=== PATIENT | female | born 1960 | race Caucasian/White ===

== ENCOUNTER → 2023-10-13 15:33 | Outpatient (REF) | payer BC, SELFPAY ==
[2023-10-13 16:44] LABS: Blood Urea Nitrogen 16 mg/dl (7-17); Calcium 9.3 mg/dl (8.4-10.2); Carbon Dioxide 26 mmol/L (22-30); Chloride 105 mmol/L (98-107); Glucose 92 mg/dl (70-99); Sodium 140 mmol/L (135-145); eGFR > 60.00
== END ==
LOC: REG 15:33
PROVIDERS: ATTENDING PHYSICIAN Surgery; FAMILY PHYSICIAN Family Medicine
DX: Z01.812 Encounter for preprocedural laboratory examination (principal)
CPT/HCPCS: 36415; 80048

== ENCOUNTER → 2023-10-17 07:22 | Outpatient (REF) | payer BC, SELFPAY | LOC: RAD 07:22 | PROVIDERS: ATTENDING PHYSICIAN Surgery; FAMILY PHYSICIAN Family Medicine | DX: Q74.0 Other congenital malformations of upper limb(s), including shoulder girdle (principal) | CPT/HCPCS: 71260; Q9967 ==

== ENCOUNTER → 2023-10-19 15:32 | Outpatient (REF) | payer BC, SELFPAY | LOC: DHCBS MAIN 15:32 | PROVIDERS: ATTENDING PHYSICIAN Internal Medicine Cardiovascular Disease; FAMILY PHYSICIAN Family Medicine | DX: I77.819 Aortic ectasia, unspecified site (principal); H34.9 Unspecified retinal vascular occlusion; I35.0 Nonrheumatic aortic (valve) stenosis | CPT/HCPCS: 93306 ==

== ENCOUNTER → 2024-02-08 06:23 | Outpatient (REF) | payer BC, SELFPAY ==
[2024-02-08 07:04] LABS: D-Dimer 0.37 ug/mlFEU (0.00-0.50)
== END ==
LOC: REG 06:23
PROVIDERS: ATTENDING PHYSICIAN Nurse Practitioner Family; FAMILY PHYSICIAN Family Medicine
DX: R06.09 Other forms of dyspnea (principal)
CPT/HCPCS: 36415; 85379

== ENCOUNTER → 2024-03-20 06:27 | Outpatient (REF) | payer BC, SELFPAY ==
[2024-03-20 08:20] LABS: D-Dimer < 0.27 ug/mlFEU (0.00-0.50)
== END ==
LOC: REG 06:27
PROVIDERS: ATTENDING PHYSICIAN Nurse Practitioner Family; FAMILY PHYSICIAN Family Medicine; REFERRING PHYSICIAN Internal Medicine Critical Care Medicine
DX: R06.09 Other forms of dyspnea (principal)
CPT/HCPCS: 36415; 85379

== ENCOUNTER → 2024-04-11 06:33 | Outpatient (REF) | payer BC, SELFPAY ==
[2024-04-11] MEDS: FLUSH (NSS) 1 FLUSH IV (08:38)
[2024-04-11] MEDS: LEXISCAN 0.4 MG IV (08:38)
[2024-04-11] MEDS: AMINOPHYLLINE 75 MG IV (08:38)
== END ==
LOC: RCS 06:33
PROVIDERS: ATTENDING PHYSICIAN Physician Assistant; FAMILY PHYSICIAN Family Medicine
DX: E78.2 Mixed hyperlipidemia (principal); E78.5 Hyperlipidemia, unspecified; I25.10 Atherosclerotic heart disease of native coronary artery without angina pectoris; Z82.49 Family history of ischemic heart disease and other diseases of the circulatory system; I44.7 Left bundle-branch block, unspecified
CPT/HCPCS: 78452; 93017; A9500; J2785

== ENCOUNTER → 2024-07-20 14:57 | Outpatient (REF) | payer BC, SELFPAY | LOC: WDC 14:57 | PROVIDERS: ATTENDING PHYSICIAN Family Medicine | DX: Z12.31 Encounter for screening mammogram for malignant neoplasm of breast (principal) | CPT/HCPCS: 77063; 77067 ==

== ENCOUNTER → 2024-08-03 16:20 | Outpatient (REF) | payer BC, SELFPAY | LOC: UCDH 16:20 | PROVIDERS: ATTENDING PHYSICIAN Physician Assistant Medical; FAMILY PHYSICIAN Family Medicine | DX: J06.9 Acute upper respiratory infection, unspecified (principal) | CPT/HCPCS: 71046 ==

== ENCOUNTER → 2024-09-08 07:01 | Outpatient (REF) | payer BC, SELFPAY ==
[2024-09-08 08:37] LABS: ALT (SGPT) 36 U/L (0-35); AST (SGOT) 29 U/L (14-36); Albumin 4.5 g/dl (3.5-5.0); Alkaline Phosphatase 90 U/L (38-126); Blood Urea Nitrogen 12 mg/dl (7-17); Calcium 9.2 mg/dl (8.4-10.2); Carbon Dioxide 26 mmol/L (22-30); Chloride 103 mmol/L (98-107); Glucose 90 mg/dl (70-99); Potassium 4.3 mmol/L (3.5-5.1); Sodium 138 mmol/L (135-145); Total Bilirubin 0.9 mg/dl (0.2-1.3); Total Protein 7.1 g/dl (6.3-8.2); eGFR > 60.00
[2024-09-08 08:45] LABS: Urine Albumin Negative (Neg - Trace); Urine Bilirubin Negative (Negative); Urine Character Clear (Clear); Urine Color Yellow; Urine Glucose Negative (Negative); Urine Ketone Negative (Negative); Urine Leukocyte Negative (Negative); Urine Nitrite Negative (Negative); Urine Occult Blood 2+ (Negative); Urine Urobilinogen Negative (Neg - 1+)
[2024-09-08 08:57] LABS: Hematocrit 44.7 % (37.0-47.0); Mean Corp Hgb Conc. 33.6 g/dL (33.0-37.0); Mean Corpuscular Hgb 29.2 pg (27.0-31.0); Mean Corpuscular Volume 87.1 fL (81.0-99.0); Red Blood Cell Count 5.13 10^6/uL (4.20-5.40); Red Cell Dist. Width 13.8 % (11.5-14.5); White Blood Cell Count 5.4 10^3/uL (4.8-10.8)
[2024-09-08 08:58] LABS: % Basophils 0.4 % (0-2); % Eosinophils 1.9 % (0-6); % Immature Granulocytes 0.4 % (0-0.5); % Lymphocytes 33.3 % (20.5-51.1); % Monocytes 6.2 % (1.7-9.3); % Neutrophils 57.8 % (42.2-75.2); Absolute Eosinophils 0.1 10^3/uL (0-0.7); Absolute Lymphocytes 1.8 10^3/uL (1.2-3.4); Absolute Monocytes 0.3 10^3/uL (0.1-0.6); Absolute Neutrophils 3.1 10^3/uL (1.4-6.5); Nucleated Red Blood Cells % 0 %
[2024-09-08 08:59] LABS: Urine Bacteria Few (Negative); Urine White Cell None Seen /HPF (0-5)
[2024-09-08 09:01] LABS: TSH Reflex To Free T4 2.11 uIU/ml (0.47-4.68)
[2024-09-08 13:22] LABS: Glycohemoglobin (HgbA1c) 5.6 % (4.0-5.6)
== END ==
LOC: REG 07:01
PROVIDERS: ATTENDING PHYSICIAN Internal Medicine Cardiovascular Disease; FAMILY PHYSICIAN Family Medicine
DX: E78.2 Mixed hyperlipidemia (principal); I25.10 Atherosclerotic heart disease of native coronary artery without angina pectoris; E88.810 Metabolic syndrome; R73.02 Impaired glucose tolerance (oral)
CPT/HCPCS: 36415; 80053; 81003; 81015; 83036; 84443; 85025

== ENCOUNTER → 2024-10-24 07:14 | Outpatient (REF) | payer BC, SELFPAY ==
[2024-10-24] MEDS: LEXISCAN 0.4 MG IV (09:27)
[2024-10-24] MEDS: FLUSH (NSS) 1 FLUSH IV (09:27)
[2024-10-24] MEDS: AMINOPHYLLINE 75 MG IV (09:45)
== END ==
LOC: RCS 07:14
PROVIDERS: ATTENDING PHYSICIAN Internal Medicine Cardiovascular Disease; FAMILY PHYSICIAN Family Medicine
DX: R07.9 Chest pain, unspecified (principal)
CPT/HCPCS: 78452; 93017; A9500; J2785

== ENCOUNTER 2024-11-05 05:56 | Day surgery (SDC) | payer BC, SELFPAY ==
[2024-11-05] VITALS (16 sets, daily range): BP systolic 110–164; BP diastolic 64–103; BMI 36.6
[2024-11-05] MEDS: LOW STRENGTH ASPIRIN 81 MG PO (07:05)
[2024-11-05 07:11] LABS: Hematocrit 44.7 % (37.0-47.0); Hemoglobin 15.2 g/dL (12.0-16.0); Mean Corpuscular Hgb 29.4 pg (27.0-31.0); Mean Corpuscular Volume 86.5 fL (81.0-99.0); Mean Platelet Volume 9.5 fL (7.4-10.4); Platelet Count 193 10^3/uL (130-400); Red Blood Cell Count 5.17 10^6/uL (4.20-5.40); Red Cell Dist. Width 13.6 % (11.5-14.5); White Blood Cell Count 5.7 10^3/uL (4.8-10.8)
[2024-11-05 07:35] LABS: ALT (SGPT) 26 U/L (0-35); AST (SGOT) 23 U/L (14-36); Albumin 4.3 g/dl (3.5-5.0); Alkaline Phosphatase 95 U/L (38-126); Blood Urea Nitrogen 9 mg/dl (7-17); Calcium 9.5 mg/dl (8.4-10.2); Carbon Dioxide 25 mmol/L (22-30); Chloride 108 mmol/L (98-107); Estimated Creatinine Clearance 98 ml/min; Glucose 103 mg/dl (70-99); Potassium 3.9 mmol/L (3.5-5.1); Sodium 141 mmol/L (135-145); eGFR > 60.00
[2024-11-05 10:50] LABS: Magnesium 2.1 mg/dl (1.6-2.3)
[2024-11-05] MEDS: TYLENOL 650 MG PO (10:59)
--- NOTE | 2024-11-05 12:19 | ITS.CL.CATH ---
Addendum entered and electronically signed by Jeovany Stark MD 11/06/24 10:41:
Attending addendum: I inadvertently described LAD as RCA stenosis. Corrected anatomy as below
CORONARY FINDINGS
DOMINANCE: Right
LEFT MAIN: Normal
LEFT ANTERIOR DESCENDING: The LAD arises normally from the left main and runs in the anterior interventricular groove. The first diagonal branch arises very proximally from the LAD and has luminal irregularities. The mid LAD beyond the diagonal
branch has a focal calcified 50 to 60% stenosis with the remainder of the LAD having only minor irregularities
CIRCUMFLEX: The circumflex is a medium caliber nondominant vessel. OM1 is small. OM 2 is a small to medium caliber vessel that bifurcates distally and the circumflex terminates in a moderate to large caliber OM 3 that has a 40% stenosis in its
midportion.
RIGHT CORONARY ARTERY: The right coronary artery is a dominant vessel with a proximal palacios's crook. The right coronary artery has only minor irregularities throughout its course with no focal obstructive stenosis.
Original Note:
Housekeeping Room Inspector - Catheterization
Cardiac Catheterization
Procedure Report:
LEFT HEART CATHETERIZATION
Date of Procedure: November 05, 2024
Referring: Dr. Le Jackson
PROCEDURES:
1. Coronary angiography. A pigtail catheter did enter the left ventricle with onset of sustained ventricular tachycardia requiring 200 J biphasic shock x 2. LVEDP was not measured after this event
INDICATION: This is a 64-year-old female with a past medical history notable for asthma and prior history of retinal artery occlusion. She reports frequent palpitations and exertional chest tightness that has been worsening over the past several
months. A [employer] 7-day monitor 01/2023 was notable for 2 episodes of an atrial tachycardia with the longest lasting up to 31 seconds. She has an intermittent rate related left bundle branch block which developed during her Myoview stress study.
There was a medium area of mildly decreased uptake that was partially reversible in the anteroseptal that improved with prone imaging and suggested soft tissue attenuation. The LVEF on her recent stress study was 46% and previously was normal.
Given ongoing symptoms.
ACCESS: Right radial artery, 6 Malay sheath
HEMODYNAMICS : (mmHg)
AO (s/d) : 136/87
LV (s/d) : Not done with patient developing sustained ventricular tachycardia when pigtail catheter entered the left ventricle and required biphasic shock x 2
CORONARY FINDINGS
DOMINANCE: Right
LEFT MAIN: Normal
LEFT ANTERIOR DESCENDING: The LAD arises normally from the left main and runs in the anterior interventricular groove. The first diagonal branch arises very proximally from the RCA and has luminal irregularities. The mid RCA beyond the diagonal
branch has a focal calcified 50 to 60% stenosis with the remainder of the LAD having only minor irregularities
CIRCUMFLEX: The circumflex is a medium caliber nondominant vessel. OM1 is small. OM 2 is a small to medium caliber vessel that bifurcates distally and the circumflex terminates in a moderate to large caliber OM 3 that has a 40% stenosis in its
midportion.
RIGHT CORONARY ARTERY: The right coronary artery is a dominant vessel with a proximal palacios's crook. The right coronary artery has only minor irregularities throughout its course with no focal obstructive stenosis.
VENTRICULAR TACHYCARDIA DURING VENTRICULOGRAPHY: A pigtail catheter was advanced from the aorta to the LV and immediately triggering a run of sustained ventricular tachycardia. Precordial thumps were administered x 2 with no change in rhythm. The
pigtail catheter was removed from the left ventricle. Transcutaneous defibrillator pads were placed and a 200 J biphasic shock was administered as the patient lost consciousness. Sinus rhythm returned for a few seconds followed by a second run of
sustained ventricular tachycardia. A second 200 J biphasic shock was administered. Metoprolol 5 mg IV was administered. The patient was awake and conversant and experienced no chest pain during the episode but was aware of the second
defibrillator shock. She was monitored for a few minutes and remained hemodynamically stable. The ECG monitor was notable for an intermittent LBBB.
SEDATION: 35 minutes of procedural sedation was utilized. An independent medical equipment repair technician was present to assist with and help manage the patient's level of consciousness and physiologic status.
RADIATION SUMMARY: Fluoro Time (min): 3.9, Dose (mGy): 323, DAP (Gy.cm2) : 23.5
Closure Device: TR band
CONCLUSIONS
1. Moderate noncritical coronary disease
2. Sustained ventricular tachycardia during ventriculography requiring emergent cardioversion x 2
RECOMMENDATIONS
1. Patient will be admitted for observation over night
2. Begin oral beta ajay
3. Obtain an echocardiogram
4. Discuss with EP colleagues given intermittent left bundle branch block and sustained ventricular tachycardia
Copy to: Dr. Le Jackson
--- NOTE | 2024-11-05 12:49 | CM ---
Reviewed chart. Met with Mrs. Barr and her daughter and son-in-law to review discharge plans. She states prior to admission she resides with her germaineghter and son-in-law in a two story home with three steps to enter. She states she has a full
flight of steps to get to bedroom/full bathroom. She states she has a powder room on the firt floor. She states prior to admission she was independent with ambulation and adls. She states she does not have any DME in the home. She states she has
a prescription plan and uses [facility]. The discharge plan is to return home with her daughter and son-in-law when medically stable.
[2024-11-05] MEDS: TOPROL XL 50 MG PO (20:07)
[2024-11-06 04:02] VITALS: BP 128/83
[2024-11-06] MEDS: TYLENOL 650 MG PO ×2 (04:25→09:39)
[2024-11-06 04:48] LABS: Hematocrit 43.8 % (37.0-47.0); Hemoglobin 14.5 g/dL (12.0-16.0); Mean Corp Hgb Conc. 33.1 g/dL (33.0-37.0); Mean Corpuscular Hgb 28.8 pg (27.0-31.0); Mean Corpuscular Volume 86.9 fL (81.0-99.0); Mean Platelet Volume 9.6 fL (7.4-10.4); Platelet Count 182 10^3/uL (130-400); Red Blood Cell Count 5.04 10^6/uL (4.20-5.40); Red Cell Dist. Width 13.8 % (11.5-14.5)
[2024-11-06 05:10] LABS: Blood Urea Nitrogen 8 mg/dl (7-17); Carbon Dioxide 25 mmol/L (22-30); Chloride 110 mmol/L (98-107); Estimated Creatinine Clearance 98 ml/min; Glucose 92 mg/dl (70-99); HDL Cholesterol 45 mg/dl; LDL Cholesterol, Calculated 79 mg/dl; Potassium 3.7 mmol/L (3.5-5.1); Sodium 143 mmol/L (135-145); Total Cholesterol 156 mg/dl (50-199); Triglyceride 164 mg/dl (10-149); Very Low Density Lipoprotein 32 mg/dl (0-30); eGFR > 60.00
--- NOTE | 2024-11-06 06:34 | PTCARENOTE ---
Pt NSR to SB on monitor, VSS. Pt c/o headache after taking Lopressor. Tylenol PRN given with minimal result. call lobato in reach
[2024-11-06 07:13] VITALS: BP 127/84
[2024-11-06] MEDS: TOPROL XL 50 MG PO (08:16)
[2024-11-06] MEDS: ASPIR LOW (ENTERIC COATED) 81 MG PO (08:16)
[2024-11-06] MEDS: CRESTOR 10 MG PO (08:16)
[2024-11-06] MEDS: KCL 20 MEQ PO (08:17)
[2024-11-06 08:19] VITALS: BP 110/91
--- NOTE | 2024-11-06 09:45 | W.PN.CARDCBS ---
Addendum entered and electronically signed by Gutierrez Sepulveda DO 11/06/24 10:44:
I saw and examined the patient.
The Splunk Architect's note was reviewed and I agree with the note.
Comment:
Plan:
Metoprol reduced for hx of asthma.
HR and bp stable.
7 day Rhythm star placed
Reviewed cath with pt and her daughter via phone.
Primary medical record librarians teacher has been updated
Stable for d/c
Original Note:
Today's Communication / Plan
-
decrease metoprolol succinate to 25mg BID
7 day outpt Rhythm start monitor- to be placed today per Cardiology office
discharge home after monitor placed
Impression / Plan
-
PCP: Campbell Stoll DO
CDY: Le Jackson MD
64 y/o, PMH known coronary calcifications seen on prior CT, presented with progressive chest burning on exertion, radiating to RUE, associated with dyspnea. This was relieved with rest. She was seen outpatient by cardiology and found to have a new
intermittent LBBB on EKG. NST had abnormal septal motion, EF 46%. She was referred for cardiac cath, which revealed 50-60% mid LAD stenosis. She developed sustained ventricular tachycardia during ventriculography requiring emergent cardioversion x 2.
IMPRESSION:
Intermittent LBBB
Non-obstructive CAD, 50-60% mid LAD ([facility] 11/05/24)
Sustained VT during ventriculography with shock x2
CVA w/retinal artery occlusion (2022)
Mild MR, Mild
Metabolic syndrome/glucose intolerance
HLD
Asthma
mild ascending Ao dilation
Morbid obesity
Hx Cervical Ca
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
PLAN:
Mod non obstructive CAD on cath yesterday
Sustained VT with shock- possibly related to ventriculography
overnight observation- tele w/NSR w/intermittent LBBB, rates 60-70s, no vt/arrhythmia
new start metoprolol 50mg BID- pt intolerant and complained of headache after one dose
decreased to 25mg BID and stressed importance of taking it as instructed
Repeat echo- nml LVSF, EF 50-55%, mild-mod MR, mild
Case discussed w/Dr. Alvarenga- pt will have Rhythm Start Monitor for 7 days as outpt- to be placed today prior to d/c
Radial cath site stable
to remain on aspirin, rosuvastatin as before
Followup at [facility] in 1 month as scheduled/Dr. Lujan thereafter
Spoke with daughter, Kayleen, on the phone and she understands the med changes and plan for outpt monitor.
home later today after monitor is placed and instructions reviewed.
Progress Note - Breakfast Server
Subjective
Date of Service: November 06, 2024
Denies cp/palps/dyspnea
radial cath site stable
oob ambulating
Objective
Labs:
11/06/24 04:12
11/06/24 04:12
Labs
Hgb 14.5 g/dL (12.0-16.0) 11/06/24 04:12
Hct 43.8 % (37.0-47.0) 11/06/24 04:12
Plt Count 182 10^3/uL (130-400) 11/06/24 04:12
Sodium 143 mmol/L (135-145) 11/06/24 04:12
Potassium 3.7 mmol/L (3.5-5.1) 11/06/24 04:12
BUN 8 mg/dl (7-17) 11/06/24 04:12
Creatinine 0.6 mg/dL (0.6-1.0) 11/06/24 04:12
Glucose 92 mg/dl (70-99) 11/06/24 04:12
Troponins
11/05/24
18:00
Troponin I Cancelled
Vital Signs and I&O:
Vital Signs
Temp Pulse Resp BP Pulse Ox
97.8 F 64 18 110/91 97
11/06/24 07:17 11/06/24 09:30 11/06/24 07:17 11/06/24 08:19 11/06/24 07:17
Vital Signs
Temp Pulse Resp BP Pulse Ox
97.8 F 64 18 110/91 97
11/06/24 07:17 11/06/24 09:30 11/06/24 07:17 11/06/24 08:19 11/06/24 07:17
Physical Exam
Physical Exam
AAOx3, MAEE 5/5
RRR S1 S2, no murmurs
CTA bilat, non labored
soft obese abd, + bs
right radial cath site with small amount bruising but no ht/bleeding, non tender, palpable pulses
bilat extremities w/palpable distal pulses, no edema
--- NOTE | 2024-11-06 10:31 | CM ---
Reviewed chart. Met with Mrs. Barr to review discharge plans. She states she is feeling better and maybe able to go home soon. She has the her seven day rhythm monitor on. Prior to admission she resides with her daughter and son-in law in a
two story home in a two story home with three steps to enter. She has a full flight of steps to get to bedroom/full bathroom..She has a powder room on the first floor. Prior to admission she was independent with ambulation and adls. She does not
have any DME in the home. She has a prescription plan and uses [facility]. The discharge plan is to return home with her daughter and son-in-law when medically stable.
--- NOTE | 2024-11-06 10:47 | W.DS.TRANS ---
DC Summary - Mechanical Maintenance Worker
-
Discharge Instructions:
Discharge Diagnosis/Procedures Cardiac catheterization
Diet Low Cholesterol
Driving Restrictions No driving for 24 hours
Instructions:
Stand-Alone Forms: DC Instructions- Cath/EP Lab
Return to Work
Changes to Home Medications: Yes
Discharge Medications:
DC Medications w/original date entered in [employer]
albuterol sulfate 90 mcg/actuation aerosol inhaler 2 puff inhalation R Q6HPRN PRN SOB 12/15/22
rosuvastatin 10 mg tablet 10 mg PO DAILY High cholesterol 12/15/22
aspirin 81 mg tablet,delayed release 81 mg PO DAILY #30 tabs 12/16/22
biotin 10,000 mcg chewable tablet 10,000 mcg PO DAILY 11/05/24
fluticasone fur. 200 mcg-umeclid 62.5 mcg-vilant 25 mcg inhalat.powder (Trelegy Ellipta) 1 inh inhalation DAILY 11/05/24
metoprolol succinate 25 mg tablet,extended release 24 hr 25 mg PO BID #60 tabs 11/06/24
Home Medication Changes
NEW: metoprolol succinate
Pending Results: No
[2024-11-06 11:07] VITALS: BP 131/80
== END 2024-11-06 12:16 | disposition home or self-care (01) ==
LOC: CATH 05:56
PROVIDERS: Nurse Practitioner; ATTENDING PHYSICIAN Internal Medicine Interventional Cardiology; FAMILY PHYSICIAN Family Medicine
DX: I25.10 Atherosclerotic heart disease of native coronary artery without angina pectoris (principal); E66.01 Morbid (severe) obesity due to excess calories; E78.5 Hyperlipidemia, unspecified; E88.810 Metabolic syndrome; G40.409 Other generalized epilepsy and epileptic syndromes, not intractable, without status epilepticus; I08.0 Rheumatic disorders of both mitral and aortic valves; I44.7 Left bundle-branch block, unspecified; I47.20 Ventricular tachycardia, unspecified; I49.01 Ventricular fibrillation; Z86.73 Personal history of transient ischemic attack (TIA), and cerebral infarction without residual deficits; Z85.41 Personal history of malignant neoplasm of cervix uteri; J45.909 Unspecified asthma, uncomplicated; R00.2 Palpitations; R07.89 Other chest pain; H34.9 Unspecified retinal vascular occlusion
CPT/HCPCS: 99152; 99153; 93306; 80048; 80053; 80061; 83735; 85027; 93005; 93454; C1769; C1894; Q9967

== ENCOUNTER 2025-02-21 17:10 | Emergency (ER) | payer BC, SELFPAY ==
[2025-02-21 17:25] VITALS: BP 179/91
[2025-02-21 17:51] LABS: Hematocrit 42.9 % (37.0-47.0); Hemoglobin 14.7 g/dL (12.0-16.0); Mean Corp Hgb Conc. 34.3 g/dL (33.0-37.0); Mean Corpuscular Volume 86.3 fL (81.0-99.0); Nucleated Red Blood Cells % 0 %; Platelet Count 201 10^3/uL (130-400); Red Cell Dist. Width 13.8 % (11.5-14.5)
[2025-02-21 18:05] LABS: ALT (SGPT) 24 U/L (0-35); AST (SGOT) 23 U/L (14-36); Albumin 4.8 g/dl (3.5-5.0); Alkaline Phosphatase 81 U/L (38-126); Blood Urea Nitrogen 14 mg/dl (7-17); Calcium 10.0 mg/dl (8.4-10.2); Carbon Dioxide 26 mmol/L (22-30); Chloride 111 mmol/L (98-107); Glucose 98 mg/dl (70-99); Potassium 4.2 mmol/L (3.5-5.1); Sodium 143 mmol/L (135-145); Total Protein 7.5 g/dl (6.3-8.2); eGFR > 60.00
[2025-02-21 18:16] LABS: Troponin I < 0.012 ng/ml
[2025-02-21 19:34] VITALS: BP 153/92
[2025-02-21 19:40] VITALS: BMI 41.9
--- NOTE | 2025-02-21 20:00 | ED.GENMED ---
History of Present Illness
General
Chief Complaint: Extremity Pain (non-traumatic)
Time Seen by Provider: 02/21/25 19:22
History of Present Illness
History of Present Illness:
64-year-old female presents to the emergency department for eval ration of left shoulder and arm discomfort as well as left arm swelling. She notes that for the past 2 to 3 weeks she has been dealing with a viral respiratory infection and was
started on a Z-Joshua earlier in the week, states the respiratory symptoms are fully resolved at this point. She denies any injuries or trauma to the chest or neck. No fevers or chills. Pleuritic pain. Went to urgent care was referred to the ED due
to Unilateral arm swelling
Past History
Past History
ED Past Medical History: Cancer (Cervical CA) and Hypercholesterolemia
ED Past Surgical History: Gynecological (Hysterectomy)
Social History
Tobacco: Non-smoker
Alcohol: None
Personal: Single
Living: alone
Employment: Employed ([employer])
Review of Systems
Review of Systems
Allergies reviewed?: Yes
All Other Systems: ROS reviewed and negative except as documented in HPI and ROS
Phy Exam
Physical Exam
Physical Exam:
GEN: Well appearing, NAD, WDWN
HEENT: Oral mucosa moist, no scleral icterus
Cardiac: Regular rate
Lung: No respiratory distress, no tachypnea
MSK: No gross deformity or injuries. Moderate diffuse swelling of the left upper extremity, patient motion normal in all jacobsen with no crepitus, no focal pain on palpation, normal strength
Skin: Good color, no pallor or jaundice, no rashes
Neuro: AO x3, moves all extremities freely
Psych: Calm, cooperative
Course
Orders/Labs/Results
Orders:
Orders
02/21/25 17:12
EKG [Electrocardiogram (*1)] Urgent
Reason for Study: Other
Other Reason for Exam: left arm pain
02/21/25 17:13
EKG- Treatment ONCE
02/21/25 17:32
US Periph Venous UPPER Ext LT Urgent
Comment:
Reason For Exam: swelling
02/21/25 17:44
Complete Blood Count/With Diff Urgent
Comprehensive Metabolic Panel Urgent
Troponin I Urgent
02/21/25 20:02
Ketorolac [Toradol] 30 mg IM NOW STA
Prednisone [Deltasone] 40 mg PO NOW STA
Abnormal Lab Results
02/21/25
17:44
Chloride 111 H mmol/L
(98-107)
02/21/25 17:44
02/21/25 17:44
Vital Signs
Initial and Last Documented VS:
Initial Vital Signs
Temp Pulse Resp BP Pulse Ox
97.9 F 68 18 179/91 94
02/21/25 17:25 02/21/25 17:25 02/21/25 17:25 02/21/25 17:25 02/21/25 17:25
Last Documented Vital Signs
Temp Pulse Resp BP Pulse Ox
97.9 F 67 20 153/92 94
02/21/25 19:34 02/21/25 19:34 02/21/25 19:34 02/21/25 19:34 02/21/25 20:02
MDM/Problems Addressed
MDM/Problems Addressed:
Likely an inflammatory brachial neuritis evidenced by diffuse pain to the trapezius, lateral chest wall, and left arm with no objective weakness. I suspect this is virally mediated. Will cover with a course of steroids
*Pulse Oximetry
SaO2: 94
Oxygen Mode of Delivery: Room air
Patient hypoxic: no
*Critical Care Note
Total Time (30-74mins, 75-104mins- exclusive of procedures): Not Applicable
ED Attending Note
-
Portions of this chart may have been created with voice recognition software.� Occasional wrong word or��sound alike� substitutions may have occurred due to the inherent limitations of voice recognition software.
Discharge Plan
Departure
Patient Disposition: Home (Routine Discharge)
Date of Disposition: 02/21/25
Time of Disposition: 20:03
Patient with high blood pressure during this ER visit?: No
Discharge Problem:
Brachial neuritis
Instructions: Radiculopathy of the neck and back (including sciatica)
Prescriptions:
New
methylprednisolone [Medrol (Joshua)] 4 mg tablets,dose pack
See Rx Instructions .ROUTE .COMPLEX Qty: 21 0RF
Rx Instructions:
orally per package directions
oxycodone 5 mg tablet
5 mg PO Q8H PRN (Reason: Pain) Qty: 8 0RF
No Action
albuterol sulfate 90 mcg/actuation HFA aerosol inhaler
2 puff inhalation R Q6HPRN PRN (Reason: SOB)
rosuvastatin 10 mg tablet
10 mg PO DAILY
aspirin 81 mg Tablet,Delayed Release (Dr/Ec)
81 mg PO DAILY Qty: 30 0RF
Trelegy Ellipta 200-62.5-25 mcg Blister With Device
1 inh INHALATION DAILY
biotin 10,000 mcg Tablet,Chewable
10,000 mcg PO DAILY
metoprolol succinate 25 mg Tablet Extended Release 24 Hr
25 mg PO BID Qty: 60 6RF
Interventions
Interventions:
*Risk Screen - Suicide Last Done: 02/21/25 17:25
*General Assessment Last Done: 02/21/25 17:25
*Neglect/Abuse Screening Last Done: 02/21/25 17:25
*ED- Fall Risk Assessment Last Done: 02/21/25 19:39
*ED COVID-19 Vaccine History Last Done: 02/21/25 17:25
*Nursing Disposition Last Done: 02/21/25 20:20
ED-Skin Assessment Last Done: 02/21/25 19:37
ED-Peripheral Vascular Assessment Last Done: 02/21/25 19:38
ED-Musculoskeletal Assessment Last Done: 02/21/25 19:40
Discharge Date and Time
Discharge Date/Time: 02/21/25 20:20
Print Language: FINNISH
[2025-02-21] MEDS: DELTASONE 40 MG PO (20:12)
[2025-02-21] MEDS: TORADOL 30 MG IM (20:13)
== END 2025-02-21 20:20 | disposition home or self-care (01) ==
LOC: EMR 17:10
PROVIDERS: Emergency Medicine; EMERGENCY PHYSICIAN Emergency Medicine; FAMILY PHYSICIAN Family Medicine
DX: M54.12 Radiculopathy, cervical region (principal); E78.00 Pure hypercholesterolemia, unspecified; Z85.41 Personal history of malignant neoplasm of cervix uteri
CPT/HCPCS: 96372; 99284; 80053; 84484; 85025; 93005; 93971

== ENCOUNTER → 2025-03-11 08:10 | Outpatient (REF) | payer BC, SELFPAY ==
[2025-03-11 09:32] LABS: Hematocrit 43.6 % (37.0-47.0); Hemoglobin 14.5 g/dL (12.0-16.0); Mean Corp Hgb Conc. 33.3 g/dL (33.0-37.0); Mean Corpuscular Volume 88.3 fL (81.0-99.0); Nucleated Red Blood Cells % 0 %; Platelet Count 200 10^3/uL (130-400); Red Cell Dist. Width 13.8 % (11.5-14.5)
[2025-03-11 10:21] LABS: ALT (SGPT) 29 U/L (0-35); AST (SGOT) 22 U/L (14-36); Albumin 4.2 g/dl (3.5-5.0); Alkaline Phosphatase 74 U/L (38-126); Blood Urea Nitrogen 10 mg/dl (7-17); Calcium 9.1 mg/dl (8.4-10.2); Carbon Dioxide 27 mmol/L (22-30); Chloride 109 mmol/L (98-107); Glucose 86 mg/dl (70-99); Potassium 4.0 mmol/L (3.5-5.1); Sodium 142 mmol/L (135-145); Total Protein 6.8 g/dl (6.3-8.2); Uric Acid 3.9 mg/dl (2.5-6.2); eGFR > 60.00
[2025-03-11 10:23] LABS: C-Reactive Protein < 5.00 mg/L (0.0-10.00)
[2025-03-11 12:27] LABS: Rheumatoid Agglutinin Less Than 10 IU (<10 IU)
[2025-03-13 02:07] LABS: ANA, IgG Reflex to HEp-2 None Detected (None Detected)
== END ==
LOC: RAD 08:10
PROVIDERS: ATTENDING PHYSICIAN Family Medicine
DX: M54.2 Cervicalgia (principal); M54.9 Dorsalgia, unspecified; M25.512 Pain in left shoulder; Z01.89 Encounter for other specified special examinations; Z79.899 Other long term (current) drug therapy; R53.83 Other fatigue
CPT/HCPCS: 36415; 72050; 72072; 73030; 80053; 84550; 85025; 85652; 86038; 86140; 86430; 86787